=== PATIENT | female | born 1975 ===

== ENCOUNTER 2022-09-18 12:14 | Emergency (ER) | payer BC ==
[2022-09-18] MEDS ORDERED: HYDROmorphone 1 MG/ML Syringe IM ONE (12:45)
[2022-09-18] MEDS ORDERED: Ketorolac 60 MG/2 ML SDV IM ONE (13:25)
[2022-09-18] MEDS ORDERED: Ibuprofen 600 MG Tab PO ONE (14:57)
== END 2022-09-18 15:25 | disposition home or self-care (01) ==
LOC: JD.ED 12:14
DX: K08.89 Other specified disorders of teeth and supporting structures (principal); Z79.899 Other long term (current) drug therapy
CPT/HCPCS: 96372; 99282; A9270; J1170; J1885